=== PATIENT | male | born 1945 | race Caucasian/White ===

== ENCOUNTER → 2016-11-12 | Outpatient (CLI) | payer MEDICARE, OTHER ==
[~2016-11-12] MED LIST: ASPIRIN EC325 MG PO; COREG12.5 M1 PO; ENDOCET 5-3251 EACH PO; HYDROCODON-ACE1 EAC7 PO; INSPRA50 MG PO; IRON325 M1 PO; PROCARDIA XL90 MG PO; TYLENOL EXTRA500 MG PO
== END | disposition home or self-care (01) ==
LOC: CDC 10:43
DX: Z01.810 Encounter for preprocedural cardiovascular examination (principal); R94.31 Abnormal electrocardiogram [ECG] [EKG]
CPT/HCPCS: 93000